=== PATIENT | female | born 1970 | race Two or more races ===

== ENCOUNTER 2020-10-09 15:31 | Emergency (ER) | payer MEDICAID, OTHER ==
[~2020-10-09] VITALS: Ht 157.5 cm; Wt 65.8 kg
[2020-10-09 15:33] VITALS: BP 131/74
[2020-10-09] MEDS ORDERED: traMADol HCL 50 MG TAB PO ONE (18:00)
== END 2020-10-09 18:34 | disposition home or self-care (01) ==
LOC: ER 15:31
DX: S00.03XA Contusion of scalp, initial encounter (principal); M43.06 Spondylolysis, lumbar region; W18.39XA Other fall on same level, initial encounter; Y93.89 Activity, other specified; Y92.89 Other specified places as the place of occurrence of the external cause; Y99.8 Other external cause status
CPT/HCPCS: 70450; 72100

== ENCOUNTER 2024-09-07 22:41 | Inpatient (IN) | payer MEDICAID, OTHER ==
[~2024-09-07] VITALS: Ht 167.6 cm; Wt 75.5 kg
[~2024-09-07 22:41] MED LIST: FERR1TAB8 PO; LISI-285 PO; RELU1TAB PO; SEMA0.5I SC; [UNRECOGNIZED DRUG - CODE] PO
[2024-09-07 23:00] VITALS: PULSE 98; RESP 18; O2SAT 99
[2024-09-07] MEDS: IPRATROPIUM BROM 0.5 MG/2.5ML INH SOL NEB ONE (23:03)
[2024-09-07] MEDS: ALBUTEROL SULF 2.5 MG/0.5ML(0.5%) NEB SOLN NEB ONE (23:03)
[2024-09-07 23:11] LABS: Basophils # (auto) 0.1 10 ^3/uL (0-0.2); Basophils % (auto) 0.5 % (0.0-2.0); Eosinophils # (auto) 0 10 ^3/uL (0-0.8); Eosinophils % (auto) 0.1 % (0.0-7.0); Hematocrit 43.4 % (36.0-46.0); Hemoglobin 14.5 g/dL (12.2-16.2); Lymphocytes # (auto) 1.5 10 ^3/uL (0.4-5.4); Lymphocytes % (auto) 12.2 % (10.0-50.0); Mean Corpuscular Hemoglobin 28.9 pg (28.0-32.0); Mean Corpuscular Hgb Conc. 33.5 g/dL (32.0-36.0); Mean Corpuscular Volume 86.3 fL (80.0-100.0); Monocytes # (auto) 0.7 10 ^3/uL (0-1.3); Monocytes % (auto) 5.9 % (0.0-12.0); Neutrophils # (auto) 9.8 10 ^3/uL (1.6-8.6); Neutrophils % (auto) 81.3 % (37.0-80.0); Nucleated Red Blood Cells % 0.1 %; Platelet Count (auto) 384 10^3/uL (140-450); Red Blood Cells 5.03 10^6/uL (4.0-5.20); Red Cell Distribution Width 13.3 % (11.8-14.3); White Blood Cell 12.1 10^3/uL (4.4-10.8)
[2024-09-07 23:36] LABS: Alanine Aminotransferase 35 U/L (7-40); Albumin 4.7 g/dL (3.2-4.8); Alkaline Phosphatase 77 U/L (46-116); Anion Gap 11 (5-15); Aspartate Aminotransferase 24 U/L (13-40); BUN/Creatinine Ratio 22.9 (10.0-20.0); Bilirubin, Total 0.4 mg/dL (0.2-1.0); Blood Urea Nitrogen 25 mg/dL (9-23); Calcium 10.6 mg/dL (8.7-10.4); Carbon Dioxide 21 mmol/L (20-31); Chloride 107 mmol/L (98-107); Glucose 163 mg/dL (74-106); Potassium 3.4 mmol/L (3.5-5.1); Sodium 139 mmol/L (136-145)
[2024-09-08] VITALS (14 sets, daily range): BP systolic 123–146; BP diastolic 60; PULSE 68–87; RESP 14–20; TEMP 97.8–98.3; O2SAT 94–100
--- NOTE | 2024-09-08 00:18 | DVH ---
EXAM: XY CHEST XRAY 1 VIEW CLINICAL HISTORY: sob TECHNIQUE: Single AP view of the chest WID: COMPARISON: None FINDINGS: Lines and tubes: None Chest: The heart size and pulmonary vasculature is within normal limits. No pleural effusion, pneumothorax, or consolidation. The osseous structures are grossly intact. IMPRESSION: No acute cardiopulmonary abnormality.
[2024-09-08 01:55] LABS: Urine Amorphous Crystal FEW /hpf (None Seen); Urine Bacteria FEW /hpf (None Seen); Urine Blood TRACE /uL (Negative); Urine Clarity Turbid (Clear); Urine Color Colorless (Yellow); Urine Hyaline Cast FEW /lpf (0 - 2); Urine Mucus FEW (None Seen); Urine Protein, UAD Negative (Negative); Urine Squamous Epithelial Cell MOD /hpf (<5); Urine Urobilinogen Normal (Negative); Urine WBC 4 /hpf (0 - 5)
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
[2024-09-08] MEDS ORDERED: ALBU108A5 IN (02:11)
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
--- NOTE | 2024-09-08 04:10 | ECG ---
[facility] Test Date: 2024-09-07 Test Time: 22:45:55 Pat Name: HALI CAPPS Department: ED Room: [address] [place] [address] Gender: F Cyber Incident Handler: KARIN : 1970 Requested By: SUNITA REESE Order Number: [id number] Reading MD: Chau Dumont Measurements Intervals [place] Rate: 100 P: 71 [place]: 147 QRS: 29 QRSD: 82 T: 242 QT: 344 QTc: 444 Interpretive Statements Sinus tachycardia Borderline repolarization abnormality Electronically Signed On 09-12-2024 15:26:40 PST by Chau Dumont Please click the below link to view image of tracing.
[2024-09-08] MEDS ORDERED: NITROGLYCERIN 0.4 MG SL TAB SL PRN (04:45)
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
[2024-09-08] MEDS: POTASSIUM EFFERVESENT TAB 25 MEQ PO ONE (04:57)
[2024-09-08] MEDS: ASPirin 325 MG TAB PO ONE (04:57)
[2024-09-08] MEDS: ATORVASTATIN 20 MG TAB PO ONE (05:07)
[2024-09-08] MEDS: IPRATROPIUM BROM 0.5 MG/2.5ML INH SOL NEB SCH (07:01)
[2024-09-08] MEDS: ALBUTEROL SULF 2.5 MG/0.5ML(0.5%) NEB SOLN NEB PRN (07:01)
[2024-09-08 08:59] LABS: Base Excess -0.6 mmol/L (-2.0-3.0)
[2024-09-08] MEDS: PANTOPRAZOLE 40 MG/10 ML VIAL INJ IV SCH (10:00)
[2024-09-08] MEDS: cefTRIAXone 1GM/50ML D5W 50 ML IV SCH (10:59)
[2024-09-08 11:27] LABS: COVID19 ANTIGEN SOFIA FIA NEGATIVE (NEGATIVE); Rapid Influenza A Negative (Negative); Rapid Influenza B Negative (Negative)
--- NOTE | 2024-09-08 13:10 | DVHSR ---
APPROVED REPORT EXAM: Two-dimensional and M-mode echocardiogram with Doppler and color Doppler. Blood Pressure: 125/75 mmHg INDICATION shortness of breaths, brief episode of loss consciousness RISK FACTORS Height: 5'6, Weight: 160 DIMENSIONS LVDd4.2 (3.8-5.7cm)LA (2D)3.9 (1.9-4.0cm)Aortic Root2.7 (2.0-3.7cm) LVDs2.9 (2.5-4.0cm)LA (MM) (1.9-4.0cm)Aortic Cusp Exc1.3 (1.5-2.0cm) EF (%) 55.0 (55-70%)Rt. Atrium3.5 (1.9-4.0cm)Asc. Aorta cm IVSd1.2 (0.7-1.1cm)RV (D)3.4 (1.8-2.4cm) PWd0.7 (0.7-1.1cm) Mitral Valve MitralMitral Stenosis E wave0.67m/sMV Mean GR.mmHg A wave0.88m/sMV Peak GR.69mmHg E/A ratio0.82D MVAcm2 DECEL [id number] 1/2 Tim[place] Aortic Valve Aortic ValveAortic Stenosis V11.40m/Juan [place] Mean GR.6mmHg V21.63m/Juan Carlos Peak GR.11mmHg LVOT Diameter1.5 (1.8-2.4cm)Doppler AVA1.52cm2 LEFT VENTRICLE Normal left ventricular size. Wall thickness is normal. Ejection fraction is normal and is estimate d at 55%. There is no regional wall motion abnormalities. Diastolic function is preserved. E to E prime ratio is in the normal range. RIGHT VENTRICLE The right ventricle is of normal size and systolic function. ATRIA Both atria are of normal size. MITRAL VALVE Normal structure and function. No significant mitral regurgitation. PULMONIC VALVE Likely normal. TRICUSPID VALVE Normal structure and function. There is trace tricuspid regurgitation. PA systolic pressure could n ot be adequately estimated. AORTIC VALVE Normal structure and function. GREAT VESSELS The aortic root is of normal size. PERICARDIAL EFFUSION No pericardial effusion. IVC is of normal size and collapses normally with inspiration. Other Information Quality : Technically LimitedRhythm : Technically limited study due to patient position.body habitus.pt SOB when lying down Conclusion Normal left ventricular size and systolic function. Ejection fraction is estimated at 55%. Normal right ventricular size and systolic function. No hemodynamically significant valvular disease. No significant pericardial effusion. PA systolic pressure could not be adequately estimated.
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
[2024-09-08] MEDS: ATORVASTATIN 20 MG TAB PO SCH (21:14)
[2024-09-09] VITALS (12 sets, daily range): BP systolic 110–125; BP diastolic 58–80; PULSE 63–85; RESP 16–20; TEMP 97.4–98.1; O2SAT 96–99
[2024-09-09 06:02] LABS: Basophils # (auto) 0.1 10 ^3/uL (0-0.2); Basophils % (auto) 0.9 % (0.0-2.0); Eosinophils # (auto) 0.2 10 ^3/uL (0-0.8); Eosinophils % (auto) 1.8 % (0.0-7.0); Hematocrit 41.3 % (36.0-46.0); Hemoglobin 13.8 g/dL (12.2-16.2); Lymphocytes # (auto) 3.6 10 ^3/uL (0.4-5.4); Lymphocytes % (auto) 38.8 % (10.0-50.0); Mean Corpuscular Hemoglobin 29.5 pg (28.0-32.0); Mean Corpuscular Hgb Conc. 33.5 g/dL (32.0-36.0); Mean Corpuscular Volume 88.2 fL (80.0-100.0); Monocytes # (auto) 0.8 10 ^3/uL (0-1.3); Monocytes % (auto) 8.8 % (0.0-12.0); Neutrophils # (auto) 4.6 10 ^3/uL (1.6-8.6); Neutrophils % (auto) 49.7 % (37.0-80.0); Nucleated Red Blood Cells % 0.1 %; Platelet Count (auto) 342 10^3/uL (140-450); Red Blood Cells 4.68 10^6/uL (4.0-5.20); Red Cell Distribution Width 13.8 % (11.8-14.3); White Blood Cell 9.2 10^3/uL (4.4-10.8)
[2024-09-09 06:34] LABS: Anion Gap 5 (5-15); Carbon Dioxide 28 mmol/L (20-31); Potassium 4.1 mmol/L (3.5-5.1); Sodium 142 mmol/L (136-145)
[2024-09-09 06:40] LABS: BUN/Creatinine Ratio 21.1 (10.0-20.0); Blood Urea Nitrogen 19 mg/dL (9-23); Glucose 94 mg/dL (74-106); Triglycerides 108 mg/dL (< 150)
[2024-09-09 06:41] LABS: LDL Cholesterol 118 mg/dL (< 100)
[2024-09-09 06:42] LABS: Cholesterol 161 mg/dL (< 200)
[2024-09-09 06:46] LABS: HDL Cholesterol 38 mg/dL (40-59)
[2024-09-09 06:47] LABS: Chloride 109 mmol/L (98-107)
--- NOTE | 2024-09-09 09:15 | DVHPN2 ---
Consult Progress Note Date Seen: Sep 09, 2024 Subjective Review of Systems: CVS:Normal, RESPIRATORY:Normal, NEURO:Normal Objective vital signs Vital Sign Date Time Temp Pulse Resp B/P (MAP) Pulse Ox O2 Delivery O2 Flow Rate FiO2 09/09/24 08:10 96 Room Air 0.0 09/09/24 07:16 63 16 09/09/24 05:00 97.6 116/58 (77) 97.6 09/08/24 20:09 21 Total Intake and Output 09/08/24 09/08/24 09/09/24 15:00 23:00 07:00 Intake Total 220 ml 0 ml Output Total 0 ml Balance 220 ml 0 ml medications Current Medications Medications Dose Ordered Sig/Mavis Route Start Time Stop Time Status Last Admin Dose Admin Nitroglycerin 0.4 mg Q5MINP PRN SL 09/08/24 04:45 Aspirin 81 mg DAILY PO 09/09/24 10:00 Atorvastatin Calcium 40 mg HS PO 09/08/24 22:00 09/08/24 21:14 40 MG Albuterol 2.5 mg Q6HPRN PRN NEB 09/08/24 04:45 09/08/24 19:05 2.5 MG Ipratropium [place] 0.5 mg Q6HWA NEB 09/08/24 06:00 09/09/24 07:10 0.5 MG Ceftriaxone Sodium 50 ml @ 100 mls/hr DAILY@09 IV 09/08/24 09:00 09/08/24 10:59 100 MLS/HR Pantoprazole Sodium 40 mg DAILY IV 09/08/24 10:00 09/08/24 10:00 40 MG Hydrochlorothiazide 25 mg DAILY PO 09/09/24 10:00 Examination: LUNGS:Normal, CVS:Normal, NEURO:Normal laboratory and microbiology Laboratory Tests 09/09/24 05:40 Test 09/09/24 05:40 Range/Units Serum Glucose 94 74-106 mg/dL Problem List/Assessment/Plan Problem List/Assessment/Plan Chest pain, rule out coronary ischemia Hypertension Hyperlipidemia Anemia GERD Plan/Recommendation (Dr. Geronimo) * Echocardiogram revealed EF 55% * Non-ischemic treadmill stress test * Continue BP control and risk factor modifications There is no further cardiac work-up indicated at this time. Kindly call if in need to continue follow-up. Thank you for allowing us to care for this patient. Please call with any questions or concerns. Critical care time spent: 40 minutes This medical document was created using an electronic medical record system with voice recognition software and computerized dictation system. Although this document has been carefully reviewed, there might still be some phonetic and typographical errors. Occasional wrong-word or ``sound-alike substitutions may have occurred due to the inherent limitations of voice recognition software. These areas are purely typographical due to imperfections of the software programs and do not reflect any compromise in the patient's medical care. Please read the chart carefully and recognize, using context, where these substitutions have occurred. Plan discussed with: Patient, Other Date of Service: Sep 09, 2024 Billing Provider: ALLY GERONIMO MD Cardiology Common Codes: [id number] [facility] IRENE UGARTE [facility] Sep 09, 2024 09:15
--- NOTE | 2024-09-09 09:21 | DVHCARD ---
Cardiology Stress Test [place] Treadmill Stress Test [place] Referring MD: SHAUNNA Waterman Protocol: Junaid (without cardiolite) Reason for referral: Chest Pain Target heart Rate:@85%: 140 Percent MPHR: 165 METS: 10.10 Resting Heart rate: 68 Resting Blood Pressure: 125/80 Exercise Heart Rate: 160 Exercise Blood Pressure: 203/73 Reason for Termination of Test: Completion of Protocol Baseline EKG: NSR Stress EKG: Sinus tachycardia w/o discernible ST-segment changes Functional Capacity: Good Normal Heart Rate Response: Adequate Blood Pressure Response: Hypertensive Clinical response: Non-ischemic Arrhythmia?: No Cardiolite Injected?: No ST-T Changes: Non/Minimal Probability of Inducible Ische: Low Comments: Uneventful Junaid protocol Date of Service: Sep 09, 2024 Billing Provider: ALLY GERONIMO MD Cardiology Common Codes: PROCEDURE ONLY Treadmill w/o Cardiolite: [id number], INTERP, RPT IRENE UGARTEP Sep 09, 2024 09:21
[2024-09-09] MEDS: hydroCHLOROthiazide 25 MG TAB PO SCH (09:38)
[2024-09-09] MEDS: ASPirin 81 mg TAB PO SCH (09:39)
--- NOTE | 2024-09-09 10:24 | DVHDSRES ---
Discharge Summary Date of Admission Resident Creating Document: HENRY MURPHY RESIDENT Sep 08, 2024 at 04:41 Date of Discharge: Sep 09, 2024 Admitting Diagnosis Chest pain rule out ACS Wounds: No wound was present. Labs/Diagnostic Data: Laboratory Results Test 09/09/24 05:40 09/08/24 19:49 09/08/24 11:01 09/08/24 09:00 White Blood Count 9.2 10^3/uL (4.4-10.8) Red Blood Count 4.68 10^6/uL (4.0-5.20) Hemoglobin 13.8 g/dL (12.2-16.2) Hematocrit 41.3 % (36.0-46.0) Mean Corpuscular Volume 88.2 fL (80.0-100.0) Mean Corpuscular Hemoglobin 29.5 pg (28.0-32.0) Mean Corpuscular Hemoglobin Concent 33.5 g/dL (32.0-36.0) Red Cell Distribution Width 13.8 % (11.8-14.3) Platelet Count 342 10^3/uL (140-450) Mean Platelet Volume 7.0 fL (6.9-10.8) Neutrophils (%) (Auto) 49.7 % (37.0-80.0) Lymphocytes (%) (Auto) 38.8 % (10.0-50.0) Monocytes (%) (Auto) 8.8 % (0.0-12.0) Eosinophils (%) (Auto) 1.8 % (0.0-7.0) Basophils (%) (Auto) 0.9 % (0.0-2.0) Neutrophils # (Auto) 4.6 10 ^3/uL (1.6-8.6) Lymphocytes # (Auto) 3.6 10 ^3/uL (0.4-5.4) Monocytes # (Auto) 0.8 10 ^3/uL (0-1.3) Eosinophils # (Auto) 0.2 10 ^3/uL (0-0.8) Basophils # (Auto) 0.1 10 ^3/uL (0-0.2) Nucleated Red Blood Cells 0.1 % Sodium Level 142 mmol/L (136-145) Potassium Level 4.1 mmol/L (3.5-5.1) Chloride Level 109 mmol/L (98-107) Carbon Dioxide Level 28 mmol/L (20-31) Anion Gap 5 (5-15) Blood Urea Nitrogen 19 mg/dL (9-23) Creatinine 0.90 mg/dL (0.550-1.02) Glomerular Filtration Rate Calc 76 mL/min (>90) BUN/Creatinine Ratio 21.1 (10.0-20.0) Serum Glucose 94 mg/dL (74-106) Calcium Level 10.0 mg/dL (8.7-10.4) Triglycerides Level 108 mg/dL (< 150) Cholesterol Level 161 mg/dL (< 200) LDL Cholesterol 118 mg/dL (< 100) HDL Cholesterol 38 mg/dL (40-59) Troponin I High Sensitivity 24 ng/L (</=34) Hemoglobin A1c 5.5 % A1C (<5.7) Influenza Type A Antigen Negative (Negative) Influenza Type B Antigen Negative (Negative) SARS-CoV-2 Antigen (Rapid) Negative (NEGATIVE) Test 09/08/24 08:54 09/08/24 01:48 09/08/24 00:40 09/07/24 22:57 Blood Gas Specimen Type Arterial Blood Gas Sample Site Right radial Blood Gas Patient Temperature 37.0 Arterial Blood Date Drawn [id number] Arterial Blood pH 7.470 (7.350-7.450) Arterial Blood Partial Pressure CO2 31.2 mmHg (32.0-45.0) Arterial Blood Partial Pressure O2 83.0 mmHg (83.0-108.0) Arterial Blood HCO3 22.2 mmol/L (21.0-28.0) Arterial Blood Oxygen Saturation 96.5 % (94.0-98.0) Arterial Blood Base Excess -0.6 mmol/L (-2.0-3.0) Arterial Blood Oxyhemoglobin 95.5 % (94.0-98.0) Arterial Blood Carboxyhemoglobin 0.6 % (0.5-1.5) Arterial Blood Methemoglobin 0.4 % (0.0-1.5) Sam Test Modified Blood Gas Total Hemoglobin 13.70 g/dL (12.0-16.0) Blood Gas Modality Room air FiO2 % 21.0 Magnesium Level 1.9 mg/dL (1.6-2.6) Thyroid Stimulating Hormone (TSH) 1.01 uIU/mL (0.55-4.78) Urine Color Colorless (Yellow) Urine Clarity Turbid (Clear) Urine pH 7.0 (5.0-9.0) Urine Specific [place] 1.010 (1.001-1.035) Urine Protein Negative (Negative) Urine Ketones Negative (Negative) Urine Blood Trace /uL (Negative) Urine Nitrite Negative (Negative) Urine Bilirubin Negative (Negative) Urine Urobilinogen Normal mg/dL (Negative) Urine Leukocyte Esterase Negative /uL (Negative) Urine RBC 1 /hpf (0 - 4) Urine WBC 4 /hpf (0 - 5) Urine Squamous Epithelial Cells Mod /hpf (<5) Urine Amorphous Crystals Few /hpf (None Seen) Urine Bacteria Few /hpf (None Seen) Urine Hyaline Casts Few /lpf (0 - 2) Urine Mucus Few (None Seen) Urine Glucose Normal mg/dL (Normal) Total Bilirubin 0.4 mg/dL (0.2-1.0) Aspartate Amino Transferase (AST) 24 U/L (13-40) Alanine Aminotransferase (ALT) 35 U/L (7-40) Alkaline Phosphatase 77 U/L (46-116) B-Type Natriuretic Peptide 17.61 pg/mL (0-100) Total Protein 8.0 g/dL (5.7-8.2) Albumin 4.7 g/dL (3.2-4.8) Parathyroid Hormone (Intact) 25.6 pg/mL (18.4-80.1) Other Laboratory Tests 09/09/24 05:40 Brief Hx & Hospital Course: This is a 54-year-old female with past medical history of GERD, anemia due to uterine fibroids, hypertension, presented to ED with chest pain for 12 hours prior to this admission. According to the patient she has been experiencing chest pain for the past 12 hours, she describes the pain as pressure-like radiating to her back, intermittent, 6/10 in intensity without any exacerbating or relieving factors. Hospital course: - Initial CXR: No acute cardiopulmonary disease . EKG revealed sinus rhythm, no ST-T changes, Troponin 19> 29> 49 and BNP was normal. Echo revealed EF 55% and cardiology evaluated the patient and recommended stress test. Stress test revealed nonischemic pattern. Discharge plan was discussed with the patient and all questions were answered. patient is being discharged to home. Discharge disposition: Home Follow up with DC clinic in 1 week Follow up with PCP in 1 to 2 weeks Consults/Reason for consult Cardiology was consulted. Operations or Procedures EXAM: Two-dimensional and M-mode echocardiogram with Doppler and color Doppler. Blood Pressure: 125/75 mmHg INDICATION shortness of breaths, brief episode of loss consciousness RISK FACTORS Height: 5'6, Weight: 160 DIMENSIONS LVDd 4.2 (3.8-5.7cm) LA (2D) 3.9 (1.9-4.0cm) Aortic Root 2.7 (2.0- 3.7cm) LVDs 2.9 (2.5-4.0cm) LA (MM) (1.9-4.0cm) Aortic Cusp Exc 1.3 (1.5- 2.0cm) EF (%) 55.0 (55-70%) Rt. Atrium 3.5 (1.9-4.0cm) Asc. Aorta cm IVSd 1.2 (0.7-1.1cm) RV (D) 3.4 (1.8-2.4cm) PWd 0.7 (0.7-1.1cm) Mitral Valve Mitral Mitral Stenosis E wave 0.67m/s MV Mean GR. mmHg A wave 0.88m/s MV Peak GR. 69mmHg E/A ratio 0.8 2D MVA cm2 DECEL Time 154ms PRESS 1/2 Time ms Aortic Valve Aortic Valve Aortic Stenosis V1 1.40m/s AO Mean GR. 6mmHg V2 1.63m/s AO Peak GR. 11mmHg LVOT Diameter 1.5 (1.8-2.4cm) Doppler DEBORAH 1.52cm2 LEFT VENTRICLE Normal left ventricular size. Wall thickness is normal. Ejection fraction is normal and is estimated at 55%. There is no regional wall motion abnormalities. Diastolic function is preserved. E to E prime ratio is in the normal range. RIGHT VENTRICLE The right ventricle is of normal size and systolic function. ATRIA Both atria are of normal size. MITRAL VALVE Normal structure and function. No significant mitral regurgitation. PULMONIC VALVE Likely normal. TRICUSPID VALVE Normal structure and function. There is trace tricuspid regurgitation. PA systolic pressure could not be adequately estimated. AORTIC VALVE Normal structure and function. GREAT VESSELS The aortic root is of normal size. PERICARDIAL EFFUSION No pericardial effusion. IVC is of normal size and collapses normally with inspiration. Other Information Quality : Technically Limited Rhythm : Technically limited study due to patient position.body habitus.pt SOB when lying down Conclusion Normal left ventricular size and systolic function. Ejection fraction is estimated at 55%. Normal right ventricular size and systolic function. No hemodynamically significant valvular disease. No significant pericardial effusion. PA systolic pressure could not be adequately estimated. EXAM: XY CHEST XRAY 1 VIEW CLINICAL HISTORY: sob TECHNIQUE: Single AP view of the chest WID: COMPARISON: None FINDINGS: Lines and tubes: None Chest: The heart size and pulmonary vasculature is within normal limits. No pleural effusion, pneumothorax, or consolidation. The osseous structures are grossly intact. IMPRESSION: No acute cardiopulmonary abnormality. Condition at Discharge: Stable Final Diagnosis/Problems List - Chest pain ruled out ACS - Ischemic heart disease ruled out - NSTEMI type 2 resolved - Hypokalemia, hypercalcemia resolved - Nonspecific leukocytosis resolved - Acute cystitis unlikely Discharge Disposition: Home Discharge Instruct/Medications Diet: Regular Activity: No Restrictions, As Tolerated Follow Up/Referral: - Follow up DC clinic in 1 week - follow up PCP in 1-2 weeks Medications: - Continue home medications. Discharge Statement: "Patient was advised to return to the ER or call 911 if any headaches, dizziness, shortness of breath, chest pain, abdominal pain, bleeding, fevers, or worsening of medical condition. Patient was counseled about treatment plan, medications, possible side effects, patientverbalized understanding. All questions were answered to the best of my ability. This discharge took greater then 30 minutes in planning, reviewing documentation, counseling the patient, and discussing with other team members." ASSESSMENT ASSESSMENT Assessment - Chest pain ruled out ACS - Ischemic heart disease ruled out - NSTEMI type 2 resolved - Hypokalemia, hypercalcemia resolved - Nonspecific leukocytosis resolved - Acute cystitis unlikely Date of Service: Sep 09, 2024 Billing Provider: MARISELA MENDOZA MD Common Visit Codes: [id number] DISCH DAY >30min HENRY MURPHY RESIDENT Sep 09, 2024 10:24 MARISELA MENDOZA MD Sep 13, 2024 16:42
== END 2024-09-09 13:40 | disposition home or self-care (01) | DRG 243 ==
LOC: ER 22:41 → EDBD 22:41 → TELE 09-08 04:41 → TELE-E-ADS 09-08 14:21
PROVIDERS: ADMIT Student in an Organized Health Care Education/Training Program; ATTEND Student in an Organized Health Care Education/Training Program
DX: K21.9 Gastro-esophageal reflux disease without esophagitis (principal); I21.A1 Myocardial infarction type 2; N30.90 Cystitis, unspecified without hematuria; D64.9 Anemia, unspecified; I10 Essential (primary) hypertension; E87.6 Hypokalemia; Z20.822 Contact with and (suspected) exposure to COVID-19; T59.811A Toxic effect of smoke, accidental (unintentional), initial encounter; E78.5 Hyperlipidemia, unspecified; D72.829 Elevated white blood cell count, unspecified; E83.52 Hypercalcemia; Z79.899 Other long term (current) drug therapy; Y92.89 Other specified places as the place of occurrence of the external cause
CPT/HCPCS: 36415; 36600; 80048; 80053; 80061; 81001; 82805; 83036; 83735; 83880; 83970; 84443; 84484; 85025; 87426; 87804; 93005; 93017; 93306; 94640; G0378; J2470